=== PATIENT | female | born 2000 | race Caucasian/White ===

== ENCOUNTER 2022-10-27 20:09 | Emergency (ER) | payer OTHER ==
[2022-10-27] MEDS ORDERED: Sodium Chloride 0.9% 1,000 ML IV ONE ×2 (21:45→22:38)
[2022-10-27] MEDS ORDERED: Sodium Chloride 0.9% 2.5 ML Syringe FLUSH PRN (21:45)
[2022-10-27] MEDS ORDERED: Sodium Chloride 0.9% 10 ML Syringe FLUSH PRN (21:45)
[2022-10-27 21:54] LABS: BASOPHILS PERCENT AUTO 0.4 % (0.0-1.5); EOSINOPHILS PERCENT AUTO 0.1 % (0.0-7.0); HEMATOCRIT 38.8 % (36.0-46.0); HEMOGLOBIN 13.6 g/dL (12.0-16.0); LYMPHOCYTES ABSOLUTE AUTO 1.3 K/uL (0.6-2.4); LYMPHOCYTES PERCENT AUTO 15.8 % (16.0-40.0); MEAN CORPUSCULAR HEMOGLOBIN 29.5 pg (27.0-32.0); MEAN CORPUSCULAR HGB CONC 35.1 g/dL (31.0-37.0); MEAN CORPUSCULAR VOLUME 84.2 fL (80.0-98.0); MONOCYTES ABSOLUTE AUTO 0.6 K/uL (0.0-0.8); MONOCYTES PERCENT AUTO 7.6 % (0.0-15.0); NEUTROPHILS ABSOLUTE AUTO 6.2 K/uL (1.4-5.7); NEUTROPHILS PERCENT AUTO 76.1 % (48.0-80.0); NRBC ABSOLUTE 0 K/uL; PLATELET COUNT,PLT 259 K/uL (150-400); RED BLOOD CELL COUNT 4.61 M/uL (4.30-5.90); WHITE BLOOD CELL COUNT,WBC 8.15 K/uL (4.0-11.0)
[2022-10-27 22:18] LABS: A/G RATIO 1.1 (0.9-1.6); ALBUMIN 3.8 g/dL (3.4-5.0); CARBON DIOXIDE,CO2 24.2 mmol/L (21.0-32.0); EST CRCL DRUG DOSING (CG) 79.4 mL/min; POTASSIUM,K 3.5 mmol/L (3.5-5.1); PROTEIN TOTAL,TP 7.2 g/dL (6.4-8.2)
[2022-10-27] MEDS ORDERED: Ondansetron 4 MG/2 ML SDV IVPUSH ONE (22:37)
== END 2022-10-27 23:55 | disposition home or self-care (01) ==
LOC: MW.ED 20:09
DX: O21.9 Vomiting of pregnancy, unspecified (principal); Z3A.09 9 weeks gestation of pregnancy
CPT/HCPCS: 36415; 80053; 81025; 83690; 85025; 93005; 96361; 96374; 99284; J2405; J3490; J7030; 93010; 99283

== ENCOUNTER 2022-11-12 21:50 | Emergency (ER) | payer OTHER ==
[2022-11-12] MEDS ORDERED: Sodium Chloride 0.9% 10 ML Syringe FLUSH PRN (22:42)
[2022-11-12] MEDS ORDERED: Sodium Chloride 0.9% 2.5 ML Syringe FLUSH PRN (22:42)
[2022-11-12] MEDS ORDERED: Sodium Chloride 0.9% 1,000 ML IV ONE (22:42)
[2022-11-12 22:59] LABS: BASOPHILS PERCENT AUTO 0.2 % (0.0-1.5); EOSINOPHILS PERCENT AUTO 0.2 % (0.0-7.0); HEMATOCRIT 36.8 % (36.0-46.0); HEMOGLOBIN 13.2 g/dL (12.0-16.0); LYMPHOCYTES ABSOLUTE AUTO 1.4 K/uL (0.6-2.4); LYMPHOCYTES PERCENT AUTO 15.6 % (16.0-40.0); MEAN CORPUSCULAR HGB CONC 35.9 g/dL (31.0-37.0); MEAN CORPUSCULAR VOLUME 83.6 fL (80.0-98.0); MONOCYTES ABSOLUTE AUTO 0.7 K/uL (0.0-0.8); MONOCYTES PERCENT AUTO 7.8 % (0.0-15.0); NEUTROPHILS ABSOLUTE AUTO 6.9 K/uL (1.4-5.7); NEUTROPHILS PERCENT AUTO 76.2 % (48.0-80.0); NRBC ABSOLUTE 0 K/uL; PLATELET COUNT,PLT 303 K/uL (150-400); WHITE BLOOD CELL COUNT,WBC 9.02 K/uL (4.0-11.0)
[2022-11-12 23:48] LABS: ALBUMIN 3.6 g/dL (3.4-5.0); BILIRUBIN TOTAL 0.9 mg/dL (0.2-1.0); CARBON DIOXIDE,CO2 24.5 mmol/L (21.0-32.0); CREATININE 0.8 mg/dL (0.6-1.0); EST CRCL DRUG DOSING (CG) 95.25 mL/min; POTASSIUM,K 3.5 mmol/L (3.5-5.1); PROTEIN TOTAL,TP 7.1 g/dL (6.4-8.2)
[2022-11-13 00:14] LABS: APPEARANCE,URINE SLT CLOUDY; COLOR,URINE YELLOW; GLUCOSE,URINE NEGATIVE (NEGATIVE); KETONES,URINE >=80 mg/dL (NEGATIVE); LEUKOCYTE ESTERASE,URINE TRACE (NEGATIVE); NITRITE,URINE NEGATIVE (NEGATIVE); OCCULT BLOOD,URINE NEGATIVE (NEGATIVE); PH,URINE 6.5 (5.0-8.0); PROTEIN,URINE NEGATIVE (NEGATIVE)
[2022-11-13] MEDS ORDERED: Promethazine 25 MG/ML SDV IM ONE (00:23)
[2022-11-13] MEDS ORDERED: Aluminum Hydroxide/Magnesium Hydroxide/Simethicone XS Susp 30 ML Cup PO ONE (00:23)
[2022-11-13 00:24] LABS: BILIRUBIN,URINE SMALL (NEGATIVE)
[2022-11-13 00:26] LABS: BACTERIA,URINE 2+ (NEGATIVE); EPITHELIAL CELLS,URINE MODERATE (NONE-FEW); RBC,URINE 0-2 (0-2/HPF)
[2022-11-13] MEDS ORDERED: cefTRIAXone 1 GM in Sodium Chloride 0.9% 50 ML IV ONE (00:48)
== END 2022-11-13 01:38 | disposition home or self-care (01) ==
LOC: MW.ED 21:50
DX: O23.41 Unspecified infection of urinary tract in pregnancy, first trimester (principal); N39.0 Urinary tract infection, site not specified; O21.0 Mild hyperemesis gravidarum; Z3A.11 11 weeks gestation of pregnancy
CPT/HCPCS: 36415; 80053; 81001; 84702; 85025; 87086; 96361; 96365; 96372; 99284; A9270; J0696; J2550; J3490; J7030; 99283

== ENCOUNTER 2022-11-24 09:08 | Inpatient (IN) | payer BC, OTHER ==
[2022-11-24] MEDS ORDERED: Sodium Chloride 0.9% 10 ML Syringe FLUSH PRN (09:21)
[2022-11-24] MEDS ORDERED: diphenhydrAMINE 50 MG/ML SDV IVPUSH ONE ×2 (09:21→14:28)
[2022-11-24] MEDS ORDERED: Metoclopramide 10 MG/2 ML SDV IVPUSH ONE ×2 (09:21→14:28)
[2022-11-24] MEDS ORDERED: Sodium Chloride 0.9% 2.5 ML Syringe FLUSH PRN (09:21)
[2022-11-24] MEDS ORDERED: Sodium Chloride 0.9% 1,000 ML IV ONE (09:21)
[2022-11-24] MEDS ORDERED: Lactated Ringers 1,000 ML IV ONE (09:24)
[2022-11-24 09:47] LABS: BASOPHILS PERCENT AUTO 0.2 % (0.0-1.5); EOSINOPHILS PERCENT AUTO 0.2 % (0.0-7.0); HEMATOCRIT 37.5 % (36.0-46.0); HEMOGLOBIN 13.2 g/dL (12.0-16.0); LYMPHOCYTES ABSOLUTE AUTO 0.9 K/uL (0.6-2.4); LYMPHOCYTES PERCENT AUTO 15.2 % (16.0-40.0); MEAN CORPUSCULAR HEMOGLOBIN 29.5 pg (27.0-32.0); MEAN CORPUSCULAR HGB CONC 35.2 g/dL (31.0-37.0); MEAN CORPUSCULAR VOLUME 83.7 fL (80.0-98.0); MONOCYTES ABSOLUTE AUTO 0.4 K/uL (0.0-0.8); MONOCYTES PERCENT AUTO 7.4 % (0.0-15.0); NEUTROPHILS ABSOLUTE AUTO 4.4 K/uL (1.4-5.7); NRBC ABSOLUTE 0 K/uL; PLATELET COUNT,PLT 230 K/uL (150-400); RED BLOOD CELL COUNT 4.48 M/uL (4.30-5.90); WHITE BLOOD CELL COUNT,WBC 5.67 K/uL (4.0-11.0)
[2022-11-24 10:03] LABS: A/G RATIO 1.1 (0.9-1.6); ALBUMIN 3.8 g/dL (3.4-5.0); BILIRUBIN TOTAL 1.3 mg/dL (0.2-1.0); CALCIUM 8.9 mg/dL (8.5-10.1); CARBON DIOXIDE,CO2 22.2 mmol/L (21.0-32.0); CREATININE 0.7 mg/dL (0.6-1.0); EST CRCL DRUG DOSING (CG) 108.86 mL/min; MAGNESIUM 1.8 mg/dL (1.8-2.4); POTASSIUM,K 3.4 mmol/L (3.5-5.1); PROTEIN TOTAL,TP 7.4 g/dL (6.4-8.2)
[2022-11-24 10:54] LABS: APPEARANCE,URINE SLT CLOUDY; BILIRUBIN,URINE NEGATIVE (NEGATIVE); COLOR,URINE YELLOW; GLUCOSE,URINE NEGATIVE (NEGATIVE); KETONES,URINE >=80 mg/dL (NEGATIVE); LEUKOCYTE ESTERASE,URINE NEGATIVE (NEGATIVE); NITRITE,URINE POSITIVE (NEGATIVE); OCCULT BLOOD,URINE NEGATIVE (NEGATIVE); PROTEIN,URINE 30 mg/dL (NEGATIVE); UROBILINOGEN,URINE 0.2 EU/dL (<2.0)
[2022-11-24 11:31] LABS: RBC,URINE NONE SEEN (0-2/HPF)
[2022-11-24 11:32] LABS: BACTERIA,URINE 2+ (NEGATIVE); EPITHELIAL CELLS,URINE FEW (NONE-FEW); WBC,URINE NONE SEEN (0-5/HPF)
[2022-11-24] MEDS ORDERED: Dextrose 5%-Lactated Ringers 1,000 ML IV SCH (11:45)
[2022-11-24] MEDS ORDERED: cefTRIAXone 2 GM in Sodium Chloride 0.9% 50 ML IV ONE (12:27)
[2022-11-24] MEDS ORDERED: Potassium Chloride 20 MEQ in Premix Bag 1 BAG IV ONE (15:43)
[2022-11-24] MEDS: Metoclopramide 10 MG/2 ML SDV IVPUSH PRN (18:44)
[2022-11-24] MEDS ORDERED: Dextrose 5%-0.9% NaCl 1,000 ML IV SCH ×2 (19:00→19:30)
[2022-11-24] MEDS ORDERED: Polyethylene Glycol 3350 Powder 17 GM Packet PO PRN (19:14)
[2022-11-24] MEDS ORDERED: TERCONAZOLE TOP SCH (21:00)
[2022-11-24] MEDS: Sodium Chloride 0.9% 1,000 ML IV SCH (21:30)
[2022-11-24] MEDS: TERCONAZOLE 0.4% TOP SCH (21:36)
[2022-11-24] MEDS ORDERED: Acetaminophen 650 MG in Premix Bag 1 BAG IV ONE (22:30)
[2022-11-24] MEDS: diphenhydrAMINE 50 MG/ML SDV IVPUSH PRN (23:08)
[2022-11-25] MEDS ORDERED: Promethazine 25 MG/ML SDV IM PRN (00:30)
[2022-11-25] MEDS: Metoclopramide 10 MG/2 ML SDV IVPUSH PRN (03:40)
[2022-11-25] MEDS: Sodium Chloride 0.9% 1,000 ML IV SCH ×3 (04:40→23:14)
[2022-11-25 05:28] LABS: BASOPHILS PERCENT AUTO 0.5 % (0.0-1.5); EOSINOPHILS PERCENT AUTO 0.5 % (0.0-7.0); HEMATOCRIT 33.7 % (36.0-46.0); HEMOGLOBIN 11.7 g/dL (12.0-16.0); LYMPHOCYTES PERCENT AUTO 23.8 % (16.0-40.0); MEAN CORPUSCULAR HEMOGLOBIN 29.3 pg (27.0-32.0); MEAN CORPUSCULAR HGB CONC 34.7 g/dL (31.0-37.0); MEAN CORPUSCULAR VOLUME 84.3 fL (80.0-98.0); MONOCYTES ABSOLUTE AUTO 0.4 K/uL (0.0-0.8); MONOCYTES PERCENT AUTO 9.6 % (0.0-15.0); NEUTROPHILS ABSOLUTE AUTO 2.9 K/uL (1.4-5.7); NEUTROPHILS PERCENT AUTO 65.6 % (48.0-80.0); NRBC ABSOLUTE 0 K/uL; PLATELET COUNT,PLT 204 K/uL (150-400); WHITE BLOOD CELL COUNT,WBC 4.37 K/uL (4.0-11.0)
[2022-11-25 05:51] LABS: ALBUMIN 3.1 g/dL (3.4-5.0); CALCIUM 8.4 mg/dL (8.5-10.1); CARBON DIOXIDE,CO2 23.5 mmol/L (21.0-32.0); CREATININE 0.7 mg/dL (0.6-1.0); EST CRCL DRUG DOSING (CG) 111.15 mL/min; POTASSIUM,K 3.3 mmol/L (3.5-5.1); PROTEIN TOTAL,TP 6.1 g/dL (6.4-8.2)
[2022-11-25] MEDS: diphenhydrAMINE 50 MG/ML SDV IVPUSH PRN ×2 (08:22→17:21)
[2022-11-25] MEDS: Potassium Chloride 100 ML IV SCH ×2 (08:30→10:57)
[2022-11-25] MEDS ORDERED: Polyethylene Glycol 3350 Powder 17 GM Packet PO PRN (09:00)
[2022-11-25] MEDS ORDERED: Polyethylene Glycol 3350 Powder 17 GM Packet PO SCH (09:00)
[2022-11-25] MEDS: Pantoprazole 20 MG in Sodium Chloride 0.9% 10 ML IVPUSH SCH (11:00)
[2022-11-25] MEDS ORDERED: cefTRIAXone 1 GM in Sodium Chloride 0.9% 50 ML IV SCH (12:00)
[2022-11-25] MEDS: Promethazine 25 MG/ML SDV IM PRN (12:48)
[2022-11-25] MEDS: cefTRIAXone 1 GM in Sodium Chloride 0.9% 50 ML IV SCH (14:34)
[2022-11-25] MEDS: TERCONAZOLE 0.4% TOP SCH (23:06)
[2022-11-26 06:10] LABS: BASOPHILS PERCENT AUTO 0.4 % (0.0-1.5); EOSINOPHILS PERCENT AUTO 0.5 % (0.0-7.0); HEMATOCRIT 32.6 % (36.0-46.0); HEMOGLOBIN 11.5 g/dL (12.0-16.0); LYMPHOCYTES ABSOLUTE AUTO 1.6 K/uL (0.6-2.4); LYMPHOCYTES PERCENT AUTO 28.6 % (16.0-40.0); MEAN CORPUSCULAR HEMOGLOBIN 30.3 pg (27.0-32.0); MEAN CORPUSCULAR HGB CONC 35.3 g/dL (31.0-37.0); MEAN CORPUSCULAR VOLUME 85.8 fL (80.0-98.0); MONOCYTES ABSOLUTE AUTO 0.5 K/uL (0.0-0.8); NEUTROPHILS ABSOLUTE AUTO 3.4 K/uL (1.4-5.7); NEUTROPHILS PERCENT AUTO 61.5 % (48.0-80.0); PLATELET COUNT,PLT 218 K/uL (150-400); WHITE BLOOD CELL COUNT,WBC 5.56 K/uL (4.0-11.0)
[2022-11-26 06:17] LABS: CALCIUM 8.5 mg/dL (8.5-10.1); CARBON DIOXIDE,CO2 20.8 mmol/L (21.0-32.0); CREATININE 0.6 mg/dL (0.6-1.0); EST CRCL DRUG DOSING (CG) 129.67 mL/min; MAGNESIUM 1.6 mg/dL (1.8-2.4); POTASSIUM,K 3.7 mmol/L (3.5-5.1)
[2022-11-26] MEDS: Sodium Chloride 0.9% 1,000 ML IV SCH ×2 (07:31→16:44)
[2022-11-26] MEDS ORDERED: Magnesium Sulfate/Water 2 GM in Premix Bag 1 BAG IV ONE (11:00)
[2022-11-26] MEDS: Pantoprazole 20 MG in Sodium Chloride 0.9% 10 ML IVPUSH SCH (11:19)
[2022-11-26] MEDS: Sucralfate Suspension 1 GM/10 ML Cup PO SCH ×2 (12:21→18:32)
[2022-11-26] MEDS: cefTRIAXone 1 GM in Sodium Chloride 0.9% 50 ML IV SCH (14:57)
[2022-11-26] MEDS: TERCONAZOLE 0.4% TOP SCH (20:20)
[2022-11-27] MEDS: Sucralfate Suspension 1 GM/10 ML Cup PO SCH ×2 (04:48→06:33)
[2022-11-27 06:20] LABS: BASOPHILS PERCENT AUTO 0.4 % (0.0-1.5); EOSINOPHILS PERCENT AUTO 0.6 % (0.0-7.0); HEMATOCRIT 32.1 % (36.0-46.0); HEMOGLOBIN 11.4 g/dL (12.0-16.0); LYMPHOCYTES ABSOLUTE AUTO 1.4 K/uL (0.6-2.4); LYMPHOCYTES PERCENT AUTO 28.1 % (16.0-40.0); MEAN CORPUSCULAR HEMOGLOBIN 30.3 pg (27.0-32.0); MEAN CORPUSCULAR HGB CONC 35.5 g/dL (31.0-37.0); MEAN CORPUSCULAR VOLUME 85.4 fL (80.0-98.0); MONOCYTES ABSOLUTE AUTO 0.5 K/uL (0.0-0.8); MONOCYTES PERCENT AUTO 9.8 % (0.0-15.0); NEUTROPHILS ABSOLUTE AUTO 3.1 K/uL (1.4-5.7); NEUTROPHILS PERCENT AUTO 61.1 % (48.0-80.0); PLATELET COUNT,PLT 219 K/uL (150-400); RED BLOOD CELL COUNT 3.76 M/uL (4.30-5.90); WHITE BLOOD CELL COUNT,WBC 5.12 K/uL (4.0-11.0)
[2022-11-27] MEDS: Sodium Chloride 0.9% 1,000 ML IV SCH (06:34)
[2022-11-27 06:40] LABS: BILIRUBIN TOTAL 0.7 mg/dL (0.2-1.0); CALCIUM 8.4 mg/dL (8.5-10.1); CARBON DIOXIDE,CO2 21.9 mmol/L (21.0-32.0); CREATININE 0.7 mg/dL (0.6-1.0); EST CRCL DRUG DOSING (CG) 111.15 mL/min; MAGNESIUM 1.7 mg/dL (1.8-2.4); POTASSIUM,K 3.5 mmol/L (3.5-5.1)
[2022-11-27] MEDS ORDERED: Pantoprazole 20 MG in Sodium Chloride 0.9% 10 ML IVPUSH SCH (09:00)
[2022-11-27] MEDS ORDERED: Famotidine 20 MG Tab PO SCH (09:45)
[2022-11-27] MEDS ORDERED: cefTRIAXone 1 GM in Sodium Chloride 0.9% 50 ML IV SCH (10:15)
[2022-11-27] MEDS ORDERED: Sucralfate 1 GM Tab PO SCH (11:30)
[2022-11-27] MEDS: Promethazine 25 MG/ML SDV IM PRN (11:40)
[2022-11-27] MEDS ORDERED: TERCONAZOLE 0.4% TOP SCH (21:00)
== END 2022-11-27 14:00 | disposition home or self-care (01) | DRG 566 ==
LOC: MW.ED 09:08 → MW.MS 14:46
PROVIDERS: ADMIT Family Medicine; ATTEND Family Medicine
DX: O23.01 Infections of kidney in pregnancy, first trimester (principal); O98.811 Other maternal infectious and parasitic diseases complicating pregnancy, first trimester; B37.9 Candidiasis, unspecified; O21.1 Hyperemesis gravidarum with metabolic disturbance; O99.611 Diseases of the digestive system complicating pregnancy, first trimester; K21.9 Gastro-esophageal reflux disease without esophagitis; Z77.22 Contact with and (suspected) exposure to environmental tobacco smoke (acute) (chronic); Z79.899 Other long term (current) drug therapy; Z3A.11 11 weeks gestation of pregnancy
CPT/HCPCS: 36415; 80053; 81001; 82947; 83690; 83735; 84100; 85025; 87086; 93005; 93010; 96361; 96365; 96375; 99284; 99285-25; A9270-GY; C9113; J0131; J0696; J1200; J2550; J2765; J3475; J3480; J3490; J7030; J7042; J7120; J7121

== ENCOUNTER 2023-06-12 17:30 | Inpatient (IN) | payer BC ==
[2023-06-12] MEDS ORDERED: Sodium Chloride 0.9% 2.5 ML Syringe FLUSH PRN (18:04)
[2023-06-12] MEDS ORDERED: Sodium Chloride 0.9% 20 ML SDV IV PRN (18:04)
[2023-06-12] MEDS ORDERED: Butorphanol 2 MG/ML SDV IVPUSH PRN (18:04)
[2023-06-12] MEDS ORDERED: Tranexamic Acid IN NACL,ISO-OS 1,000 MG in Premix Bag 1 BAG IV PRN (18:04)
[2023-06-12] MEDS ORDERED: Methylergonovine 0.2 MG/1 ML Amp IM PRN (18:04)
[2023-06-12] MEDS ORDERED: Lidocaine 1% 50 ML MDV INJECT PRN (18:04)
[2023-06-12] MEDS ORDERED: Carboprost Tromethamine 250 MCG/1 mL Vial IM PRN (18:04)
[2023-06-12] MEDS ORDERED: Misoprostol 200 MCG Tab PO PRN (18:04)
[2023-06-12] MEDS ORDERED: Water For Irrigation,Sterile 1,000 ML Container IRR PRN (18:04)
[2023-06-12] MEDS ORDERED: Oxytocin/0.9 % Sodium Chloride 30 UNIT/500 ML BAG IV SCH (18:15)
[2023-06-12 18:42] LABS: HEMATOCRIT 31.8 % (37.0-47.0); HEMOGLOBIN 11.4 g/dL (12.0-16.0); MEAN CORPUSCULAR HEMOGLOBIN 31.3 pg (28.0-32.0); MEAN CORPUSCULAR HGB CONC 35.8 g/dL (32.0-36.0); MEAN CORPUSCULAR VOLUME 87.4 fL (83.0-99.0); MEAN PLATELET VOLUME 10.3 fL (9.4-12.3); PLATELET COUNT,PLT 165 K/uL (150-400); RED BLOOD CELL COUNT 3.64 M/uL (4.10-5.30); WHITE BLOOD CELL COUNT,WBC 6.17 K/uL (3.9-11.3)
[2023-06-13] MEDS: Oxytocin/0.9 % Sodium Chloride 30 UNIT/500 ML BAG IV SCH (02:15)
[2023-06-13] MEDS: Lactated Ringers 1,000 ML IV SCH (02:15)
[2023-06-13] MEDS ORDERED: Bupivacaine 0.5% 10 ML SDV ONE (05:08)
[2023-06-13] MEDS ORDERED: Phenylephrine HCl 0.5 MG/5 ML AMP ONE (05:08)
[2023-06-13] MEDS: Ropivacaine HCl/PF 200 ML ONE (05:11)
[2023-06-13] MEDS ORDERED: ePHEDrine 50 MG/ML SDV IVPUSH PRN ×2 (05:33)
[2023-06-13] MEDS ORDERED: Phenylephrine HCl 0.5 MG/5 ML AMP IVPUSH PRN (05:33)
[2023-06-13] MEDS ORDERED: Ropivacaine HCl/PF 400 MG in Premix Bag 1 BAG EPIDUR SCH (05:45)
[2023-06-13] MEDS: Ondansetron 4 MG/2 ML SDV IVPUSH PRN (07:27)
[2023-06-13] MEDS: Ampicillin/Sulbactam Na 3 GM in Sodium Chloride 0.9% 100 ML IV ONE (07:58)
[2023-06-13] MEDS ORDERED: Docusate Sodium 100 MG Cap PO PRN (12:28)
[2023-06-13] MEDS ORDERED: oxyCODONE 5 MG Tab PO PRN (12:28)
[2023-06-13 12:41] LABS: PH,UMBILICAL ARTERIAL 7.162 (7.18-7.38); PH,UMBILICAL VENOUS 7.236 (7.25-7.45)
[2023-06-13] MEDS: Witch Hazel Medicated Pads 40/Jar TOP PRN (13:39)
[2023-06-13] MEDS: Lanolin 100% Cream 7 GM Tube TOP PRN (13:39)
[2023-06-13] MEDS: Benzocaine/Menthol 20%-0.5% Spray 78 GM Cannister TOP PRN (13:40)
[2023-06-13] MEDS: Ampicillin/Sulbactam Na 1.5 GM in Sodium Chloride 0.9% 50 ML IV SCH (13:46)
[2023-06-13] MEDS ORDERED: Ampicillin/Sulbactam Na 1.5 GM in Sodium Chloride 0.9% 100 ML IV SCH ×2 (14:00)
[2023-06-13] MEDS: Ibuprofen 800 MG Tab PO PRN (18:32)
[2023-06-13] MEDS ORDERED: EPINEPHrine 1 MG/1 ML Amp ONE (18:36)
[2023-06-13] MEDS ORDERED: Ropivacaine 0.5% 5 MG/ML 30 ML SDV ONE (18:36)
[2023-06-13] MEDS ORDERED: Oxytocin 10 Units/1 ML SDV ONE ×2 (18:36→19:23)
[2023-06-13] MEDS ORDERED: Morphine PF 10 MG/10 ML SDV ONE (18:36)
[2023-06-13] MEDS ORDERED: Ketorolac 30 MG/ML SDV ONE (18:36)
[2023-06-13] MEDS ORDERED: Bupivacaine 0.25% 30 ML SDV ONE (18:36)
[2023-06-13] MEDS ORDERED: Ondansetron 4 MG/2 ML SDV ONE (18:36)
[2023-06-13] MEDS ORDERED: ceFAZolin 1 GM Vial ONE (18:36)
[2023-06-13] MEDS ORDERED: fentaNYL 100 MCG/2 ML SDV ONE (18:36)
[2023-06-13] MEDS ORDERED: Tranexamic Acid 1,000 MG/10 ML Vial ONE (19:17)
[2023-06-13] MEDS: Sodium Chloride 0.9% 10 ML Syringe FLUSH PRN (22:27)
[2023-06-13] MEDS: Acetaminophen 500 MG Tab PO PRN (22:33)
[2023-06-14 05:44] LABS: HEMATOCRIT 31.6 % (37.0-47.0)
== END 2023-06-14 15:50 | disposition home or self-care (01) | DRG 560 ==
LOC: MW.OBCHECK 17:30 → MW.OB 17:49 → MW.OBCHECK 18:20 → OBSVTOIN 06-13 12:29 → MW.OB 06-13 15:45
PROVIDERS: ADMIT Obstetrics & Gynecology; ATTEND Obstetrics & Gynecology
PROC: 10E0XZZ Delivery of Products of Conception, External Approach (ICD-10-PCS; principal; 2023-06-13)
PROC: 0HQ9XZZ Repair Perineum Skin, External Approach (ICD-10-PCS; 2023-06-13)
PROC: 3E033VJ Introduction of Other Hormone into Peripheral Vein, Percutaneous Approach (ICD-10-PCS; 2023-06-13)
PROC: 3E0R3BZ Introduction of Anesthetic Agent into Spinal Canal, Percutaneous Approach (ICD-10-PCS; 2023-06-13)
PROC: 00HU33Z Insertion of Infusion Device into Spinal Canal, Percutaneous Approach (ICD-10-PCS; 2023-06-13)
DX: O42.02 Full-term premature rupture of membranes, onset of labor within 24 hours of rupture (principal); O77.0 Labor and delivery complicated by meconium in amniotic fluid; Z37.0 Single live birth; Z3A.39 39 weeks gestation of pregnancy; O70.0 First degree perineal laceration during delivery
CPT/HCPCS: 01967; 36415; 51702; 59025; 59409; 82803; 85014; 85018; 85027; 86592; 86850; 86900; 86901; A9270-GY; J0171; J0295; J0665; J0690; J1100; J1885; J2274; J2371; J2405; J2590; J2795; J3010; J3490; J7120